=== PATIENT | female | born 1970 | race Caucasian/White ===

== ENCOUNTER 2016-12-07 14:13 | Emergency (ER) ==
[2016-12-07 14:17] VITALS: BP 136/87; TEMP 98.3; BMI 22.7
[2016-12-07 15:25] LABS: FLU INTERNAL QC INTERNAL QC VALID; RAPID FLU A NEGATIVE (NEGATIVE); RAPID FLU B NEGATIVE (NEGATIVE)
--- NOTE | 2016-12-07 15:38 | ED.PDOC ---
General ED Provider: Dr. JOSÉ MANUEL JOYCE Chief Complaint: Respiratory Complaint Stated Complaint: cough, wheez, Time Seen by Physician: 14:14 Mode of Arrival: Walk-In Information Source: Patient Exam Limitations: No limitations [facility] T[facility] Documentation Reviewed and Agree: Yes Respiratory Complaint Exam - Respiratory Complaint/Exam Symptoms Are: Still present Timing: Intermittent Initial Severity: Moderate Current Severity: Moderate Location: Chest Character: Reports: Non-productive cough Aggravating: Reports: None Alleviating: Reports: None Associated Signs and Symptoms: Reports: Nasal congestion. Denies: Rapid breathing, Dyspnea, Fever, Chills, Chest pain, Pleuritic chest pain, Wheezing, Hemoptysis, Dizziness, Calf pain, Calf swelling, Edema, URI, Hoarseness, Sinus discomfort, Vomiting, Sore throat, Weight loss, Decreased oral intake, Increased thirst, Increased appetite, Increased urination Related History: Reports: Similar episode History of Healthcare-Acquired Pneumonia: No Related Surgical History: Reports: None Pulmonary Embolism Risk Factors: None Cardiac Risk Factors: Reports: Elevated lipids Pseudomonas Risk Factors: Reports: None Tuberculosis Risk Factors: Reports: None Status Asthmaticus Risk Factors: Reports: None Home Oxygen Use: No Recent Stress Test: No Recent Echo/LV Function: No Current Antibiotic Use: No Current Asthma Medication Use: No Respiratory Distress: None Inadequate Respiratory Effort: No Dysphagia Present: No Stridor Present: No JVD Present: No Retractions: Not Present Diminished Breath Sounds: No Sinus Tenderness: None Grunting Respirations: No Kussmaul Respirations: No Differential Diagnoses: Pneumonia, Bronchitis Review of Systems - Review Of Systems Constitutional: Reports: No symptoms Eyes: Reports: No symptoms Ears, Nose, Mouth, Throat: Reports: No symptoms Respiratory: Reports: Cough, Wheezing Cardiac: Reports: No symptoms GI: Reports: No symptoms : Reports: No symptoms Musculoskeletal: Reports: No symptoms Skin: Reports: No symptoms Neurological: Reports: No symptoms Endocrine: Reports: No symptoms Hematologic/Lymphatic: Reports: No symptoms All Other Systems: Reviewed and Negative Past Medical History - Past Medical History Previously Healthy: Yes Endocrine: Reports: None, Dyslipidemia Cardiovascular: Reports: None Respiratory: Reports: None Hematological: Reports: None Gastrointestinal: Reports: None Genitourinary: Reports: None Neuro/Psych: Reports: None Musculoskeletal: Reports: None Cancer: Reports: None Last Menstrual Period: n/a - Surgical History General Surgical History: Reports: None - Family History Family History: Reports: None - Social History Smoking Status: Current every day smoker Hx Substance Use: No Alcohol Screening: Occasionally Physical Exam - Physical Exam Appearance: Well-appearing, No pain distress, Well-nourished Eyes: ANGELINA, EOMI, Conjunctiva clear ENT: Ears normal, Nose normal, Oropharynx normal Respiratory: Airway patent, Breath sounds clear, Breath sounds equal, Respirations nonlabored Cardiovascular: RRR, Pulses normal, No rub, No murmur GI/: Soft, Nontender, No masses, Bowel sounds normal, No Organomegaly Musculoskeletal: Normal strength, ROM intact, No edema, No calf tenderness Skin: Warm, Dry, Normal color Neurological: Sensation intact, Motor intact, Reflexes intact, Cranial nerves intact, Alert, Oriented Psychiatric: Affect appropriate, Mood appropriate Critical Care Note - Critical Care Note Total Time (mins): 0 Course - Course Orders, Labs, Meds: Lab Review 12/07/16 15:00 Influenza A (Rapid) Negative Influenza B (Rapid) Negative Orders Category Date Time Status MOLECULAR GROUP A STREP Stat LAB 12/07/16 15:00 Results RAPID FLU A/B Stat LAB 12/07/16 14:57 Uncollected STREP SCREEN Stat LAB 12/07/16 14:57 Uncollected CHEST, 2 VIEWS PA & LAT Stat RADS 12/07/16 14:57 Ordered Vital Signs: Temp Pulse Resp BP Pulse Ox 12/07/16 14:14 98.3 F 73 14 136/87 98 Departure - Departure Time of Disposition: 15:38 Disposition: HOME SELF-CARE Discharge Problem: Bronchitis Instructions: Bronchospasm (ED), Wheezing (ED), Acute Bronchitis (ED) Condition: Good Pt referred to PMD for follow-up: Yes Additional Instructions: Please call your Family Physician as soon as possible to schedule a follow-up appointment. Prescriptions: Amoxicillin 500 mg PO Q8HR #21 tablet Methylprednisolone [Medrol Dosepak] 4 mg PO DIRECTED #1 pkg Allergies/Adverse Reactions: Allergies No Known Allergies Allergy (Unverified 12/07/16 14:17) Home Medications: Ambulatory Orders Amoxicillin 500 mg PO Q8HR #21 tablet 12/07/16 Methylprednisolone [Medrol Dosepak] 4 mg PO DIRECTED #1 pkg 12/07/16 Disposition Discussed With: Patient
--- NOTE | 2016-12-08 09:32 | DI ---
EXAM: Two radiographic images of the chest. Comparison: None available. Reason for study: Cough. FINDINGS: No pneumothorax, pleural effusion, or focal consolidation. The cardiac silhouette is not enlarged. Well-circumscribed 5 mm dense nodule in the left lung base is likely a granuloma. Mild degenerative disease is noted in the thoracic spine with anterior osteophytosis. IMPRESSION: No acute cardiopulmonary findings.
== END 2016-12-07 15:54 | disposition home or self-care (01) ==
LOC: ED 14:13
DX: J20.9 Acute bronchitis, unspecified (principal); E78.5 Hyperlipidemia, unspecified; F17.210 Nicotine dependence, cigarettes, uncomplicated
CPT/HCPCS: 87651; 87804; 87880; 99283

== ENCOUNTER 2017-03-16 12:06 | Outpatient (CLI) ==
[2017-03-16 12:24] LABS: BASOPHILS # (AUTO) 0.1 K/uL (0-0.2); BASOPHILS % (AUTO) 0.9 % (0.0-3.0); EOSINOPHILS # (AUTO) 0.1 K/ul (0.0-0.7); EOSINOPHILS % (AUTO) 2.1 % (0.0-7.0); HEMATOCRIT 39.2 % (37.0-47.0); HEMOGLOBIN 13.6 g/dl (12.0-16.0); IMMATURE GRANULOCYTE % (AUTO) 0.3 % (0.0-5.0); LYMPHOCYTES # (AUTO) 2.1 K/uL (0.60-3.4); LYMPHOCYTES % (AUTO) 31.7 (10.0-50.0); MEAN CORPUSCULAR HGB CONC 34.7 (31.8-35.4); MEAN CORPUSCULAR VOLUME 92.2 fl (81.0-99.0); MONOCYTES # (AUTO) 0.4 K/uL (0.4-2.0); MONOCYTES % (AUTO) 6.4 (0-10); NEUTROPHILS # (AUTO) 3.9 K/ul (2.0-6.9); NEUTROPHILS % (AUTO) 58.6; PLATELET COUNT 312 10^3/uL (140-440); RED BLOOD COUNT 4.25 10^6/ul (4.20-5.40); WHITE BLOOD COUNT 6.71 K/ul (4.6-10.2)
[2017-03-16 13:03] LABS: ALBUMIN 3.9 g/dL (3.4-5.0); ALBUMIN/GLOBULIN RATIO 1.03; ANION GAP 13.1; BILIRUBIN,TOTAL 0.33 mg/dL (0.00-1.20); BUN/CREATININE RATIO 15.49; CALCIUM 9.7 mg/dL (8.2-10.2); CREATININE 0.71 mg/dL (0.60-1.30); POTASSIUM 4.1 mmol/L (3.5-5.10); TOTAL PROTEIN 7.7 g/dL (6.4-8.2)
== END 2017-03-16 12:07 | disposition home or self-care (01) ==
LOC: LAB 12:06
PROVIDERS: ATTEND Nurse Practitioner Family
DX: I10 Essential (primary) hypertension (principal); F41.9 Anxiety disorder, unspecified; E78.5 Hyperlipidemia, unspecified
CPT/HCPCS: 36415; 80053; 80061; 84439; 84443; 85025

== ENCOUNTER 2017-03-30 10:58 | Emergency (ER) ==
[2017-03-30 10:58] VITALS: BMI 22.7
[2017-03-30 11:03] VITALS: BP 108/74; TEMP 97.1
--- NOTE | 2017-03-30 11:20 | ED.PDOC ---
General ED Provider: Dr. CHELO SANTACRUZ JR Chief Complaint: Back Pain Stated Complaint: patient states she has been having problems with her low back for years and states she has been going to the clinic. states they usually given her muscle relaxers. states it flared up again yesterday. patient c/o pain to right lumbar area and down buttock and all the way down into her right foot[End]2 years patient states pain goes all the way into foot[End]97.1 91 16 96% 108/74 07/07 Time Seen by Physician: 11:20 Mode of Arrival: Walk-In Information Source: Patient Exam Limitations: No limitations Primary Care Provider: [facility] and Triage Documentation Reviewed and Agree: No Review of Systems - Review Of Systems Constitutional: Reports: No symptoms Eyes: Reports: No symptoms Ears, Nose, Mouth, Throat: Reports: No symptoms Respiratory: Reports: No symptoms Cardiac: Reports: No symptoms GI: Reports: No symptoms : Reports: No symptoms Musculoskeletal: Reports: Back pain, Muscle pain, Other (right sciatrica nmild slight pos SLR works 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) Skin: Reports: No symptoms Neurological: Reports: Tingling Endocrine: Reports: No symptoms Hematologic/Lymphatic: Reports: No symptoms All Other Systems: Other Past Medical History - Past Medical History Previously Healthy: Yes Endocrine: Reports: None, Dyslipidemia Cardiovascular: Reports: Hypertension Respiratory: Reports: None Hematological: Reports: None Gastrointestinal: Reports: None Genitourinary: Reports: None Neuro/Psych: Reports: Anxiety, Depression Musculoskeletal: Reports: Back Pain Cancer: Reports: None Last Menstrual Period: n/a - Surgical History General Surgical History: Reports: Hysterectomy - Family History Family History: Reports: None - Social History Smoking Status: Current every day smoker Hx Substance Use: No Alcohol Screening: None Physical Exam - Physical Exam Appearance: Well-appearing Pain Distress: Moderate Neck: Supple Respiratory: Airway patent Musculoskeletal: Normal strength, ROM intact, No edema, No calf tenderness (POS SLR RIGHT) Skin: Warm, Dry, Normal color Neurological: Sensation intact, Motor intact, Reflexes intact, Cranial nerves intact, Alert, Oriented Psychiatric: Affect appropriate Critical Care Note - Critical Care Note Total Time (mins): 0 Course - Course Orders, Labs, Meds: Orders Category Date Time Status Ketorolac Tromethamine [Toradol] MEDS 03/30/17 11:42 Discontinued 60 mg IM ONCE STA Medications Discontinued Medications Generic Name Dose Route Start Last Admin Trade Name Chilo PRN Reason Stop Dose Admin Ketorolac Tromethamine 60 mg 03/30/17 11:42 03/30/17 11:52 Toradol IM 03/30/17 11:43 60 mg ONCE STA Administration Vital Signs: Temp Pulse Resp BP Pulse Ox 03/30/17 10:58 97.1 F L 91 H 16 108/74 96 Departure - Departure Time of Disposition: 12:32 Disposition: HOME SELF-CARE Discharge Problem: Sciatica of right side associated with disorder of lumbosacral spine Instructions: Sciatica (ED), Lumbar Radiculopathy (ED) Condition: Good Pt referred to PMD for follow-up: Yes Additional Instructions: limit lifting for three days Toradol for pain may use Aleve(2 twice a day) instead but not the same day as Toradol follow up PMD consider repeat MRI would consider neurosurgical consultation expect improvement with nonsteroidals may require further treatment for resolution Prescriptions: Ketorolac Tromethamine [Toradol] 10 mg PO QID PRN #20 tablet PRN Reason: PAIN Allergies/Adverse Reactions: Allergies gabapentin [From Neurontin] Allergy (Intermediate, Unverified 03/30/17 11:03) Swelling oral swelling with sores Home Medications: Ambulatory Orders Ketorolac Tromethamine [Toradol] 10 mg PO QID PRN #20 tablet 03/30/17
[2017-03-30] MEDS ORDERED: TORADOL IM STA (11:42)
== END 2017-03-30 12:39 | disposition home or self-care (01) ==
LOC: ED 10:58
DX: M54.41 Lumbago with sciatica, right side (principal); M54.16 Radiculopathy, lumbar region; F17.210 Nicotine dependence, cigarettes, uncomplicated
CPT/HCPCS: 96372; 99282

== ENCOUNTER 2017-05-22 07:30 | Emergency (ER) ==
[2017-05-22 07:31] VITALS: BMI 22.7
[2017-05-22 07:41] VITALS: BP 103/67; TEMP 98
[2017-05-22] MEDS ORDERED: DECADRON 4 MG/ML SDV IM STA (07:55)
--- NOTE | 2017-05-22 07:58 | ED.PDOC ---
General ED Provider: Dr. MATTHEW LOGAN Chief Complaint: Rash Stated Complaint: rash started on the rt leg, spreadding, blistery, itching, Time Seen by Physician: 07:55 Mode of Arrival: Walk-In Information Source: Patient Primary Care Provider: [facility]W [facility] Nursing and Triage Documentation Reviewed and Agree: Yes Skin Complaint Exam - Skin Rash/Itching Complaint/Exam Symptoms Are: Still present Initial Severity: Mild Current Severity: Mild Potential Exposures: Reports: Plants Aggravating: Reports: None Alleviating: Reports: None Associated Signs and Symptoms: Denies: Difficulty breathing, Fever, Chills Skin Findings: Present: Vesicles, Weeping skin Differential Diagnoses: Contact Dermatitis Review of Systems - Review Of Systems Constitutional: Reports: No symptoms Eyes: Reports: No symptoms Ears, Nose, Mouth, Throat: Reports: No symptoms Respiratory: Reports: No symptoms Cardiac: Reports: No symptoms GI: Reports: No symptoms : Reports: No symptoms Musculoskeletal: Reports: No symptoms Skin: Reports: Rash Neurological: Reports: No symptoms Endocrine: Reports: No symptoms Hematologic/Lymphatic: Reports: No symptoms All Other Systems: Reviewed and Negative Past Medical History - Past Medical History Previously Healthy: Yes Endocrine: Reports: None, Dyslipidemia Cardiovascular: Reports: Hypertension Respiratory: Reports: None Hematological: Reports: None Gastrointestinal: Reports: None Genitourinary: Reports: None Neuro/Psych: Reports: Anxiety, Depression Musculoskeletal: Reports: Back Pain Cancer: Reports: None Last Menstrual Period: na - Surgical History General Surgical History: Reports: Hysterectomy - Family History Family History: Reports: None - Social History Smoking Status: Current every day smoker, Heavy tobacco smoker Smoking Cessation Counseling Time: > 10 min Hx Substance Use: No Alcohol Screening: Occasionally - Immunizations Tetanus Shot up to Date: Yes Physical Exam - Physical Exam Appearance: Well-appearing, No pain distress, Well-nourished Eyes: ANGELINA, EOMI, Conjunctiva clear ENT: Ears normal, Nose normal, Oropharynx normal Respiratory: Airway patent, Breath sounds clear, Breath sounds equal, Respirations nonlabored Cardiovascular: RRR, Pulses normal, No rub, No murmur GI/: Soft, Nontender, No masses, Bowel sounds normal, No Organomegaly Musculoskeletal: Normal strength, ROM intact, No edema, No calf tenderness Skin: Warm, Dry, Normal color Neurological: Sensation intact, Motor intact, Reflexes intact, Cranial nerves intact, Alert, Oriented Psychiatric: Affect appropriate, Mood appropriate Critical Care Note - Critical Care Note Total Time (mins): 0 Course - Course Orders, Labs, Meds: Orders Category Date Time Status Dexamethasone 4 mg/ml Inj [Decadron 4 mg/ml Sdv] MEDS 05/22/17 07:55 Stat 4 mg IM ONCE STA Vital Signs: Temp Pulse Resp BP Pulse Ox 05/22/17 07:31 98 F 87 20 103/67 95 Departure - Departure Time of Disposition: 08:01 Disposition: HOME SELF-CARE Discharge Problem: Pruritic rash Instructions: Contact Dermatitis (ED) Condition: Stable Pt referred to PMD for follow-up: No Additional Instructions: keep area clean, do not scratch the area, Increase hydration. Prescriptions: Betamethasone Dipropionate 1 applic TP DAILY #1 vial Diphenhydramine HCl [Benadryl] 25 mg PO Q6H #14 capsule Methylprednisolone [Medrol Dosepak] 4 mg PO DIRECTED #1 pkg Allergies/Adverse Reactions: Allergies gabapentin [From Neurontin] Allergy (Intermediate, Unverified 05/22/17 07:43) Swelling oral swelling with sores Home Medications: Ambulatory Orders Betamethasone Dipropionate 1 applic TP DAILY #1 vial 05/22/17 Diphenhydramine HCl [Benadryl] 25 mg PO Q6H #14 capsule 05/22/17 Methylprednisolone [Medrol Dosepak] 4 mg PO DIRECTED #1 pkg 05/22/17 Disposition Discussed With: Patient
== END 2017-05-22 08:18 | disposition home or self-care (01) ==
LOC: ED 07:30
DX: L23.7 Allergic contact dermatitis due to plants, except food (principal); F17.210 Nicotine dependence, cigarettes, uncomplicated
CPT/HCPCS: 96372; 99282

== ENCOUNTER 2017-09-11 13:10 | Emergency (ER) ==
[2017-09-11 13:19] VITALS: BP 181/105; TEMP 97.9; BMI 23.0
--- NOTE | 2017-09-11 13:33 | ED.PDOC ---
General ED Provider: Dr. DANISH HARRIS-ER Chief Complaint: Respiratory Complaint Stated Complaint: gage got sinus congestion and cough Time Seen by Physician: 13:31 Mode of Arrival: Walk-In Information Source: Patient Exam Limitations: No limitations [facility] and Triage Documentation Reviewed and Agree: Yes Respiratory Complaint Exam - Respiratory Complaint/Exam Onset/Duration: 3 days Symptoms Are: Still present Timing: Constant Initial Severity: Mild Current Severity: Mild Location: Nose, Chest Character: Reports: Productive cough Aggravating: Reports: URI Alleviating: Reports: None Associated Signs and Symptoms: Reports: URI, Nasal congestion, Sinus discomfort. Denies: Rapid breathing, Dyspnea, Fever, Chills, Chest pain, Pleuritic chest pain, Wheezing, Hemoptysis, Dizziness, Calf pain, Calf swelling , Edema, Vomiting, Sore throat, Weight loss, Decreased oral intake, Increased thirst, Increased appetite, Increased urination History of Healthcare-Acquired Pneumonia: No Related Surgical History: Reports: None Cardiac Risk Factors: Reports: Smoking Tuberculosis Risk Factors: Reports: Smoking Status Asthmaticus Risk Factors: Reports: None Home Oxygen Use: No Recent Stress Test: No Recent Echo/LV Function: No Current Antibiotic Use: No Current Asthma Medication Use: No Respiratory Distress: None Inadequate Respiratory Effort: No Dysphagia Present: No Stridor Present: No JVD Present: No Accessory Muscle Use: No Retractions: Not Present Diminished Breath Sounds: No Sinus Tenderness: Maxillary Grunting Respirations: No Kussmaul Respirations: No Differential Diagnoses: Bronchitis, Sinusitis, URI Review of Systems - Review Of Systems Constitutional: Reports: No symptoms Eyes: Reports: No symptoms Ears, Nose, Mouth, Throat: Reports: Nose discharge Respiratory: Reports: Cough Cardiac: Reports: No symptoms GI: Reports: No symptoms : Reports: No symptoms Musculoskeletal: Reports: No symptoms Skin: Reports: No symptoms Neurological: Reports: No symptoms Endocrine: Reports: No symptoms Hematologic/Lymphatic: Reports: No symptoms All Other Systems: Reviewed and Negative Past Medical History - Past Medical History Previously Healthy: Yes Endocrine: Reports: None, Dyslipidemia Cardiovascular: Reports: Hypertension Respiratory: Reports: None Hematological: Reports: None Gastrointestinal: Reports: None Genitourinary: Reports: None Neuro/Psych: Reports: Anxiety, Depression Musculoskeletal: Reports: Back Pain Cancer: Reports: None Last Menstrual Period: unknown - Surgical History General Surgical History: Reports: Hysterectomy - Family History Family History: Reports: None - Social History Smoking Status: Current every day smoker, Heavy tobacco smoker Hx Substance Use: No Alcohol Screening: Occasionally Lives: With family Physical Exam - Physical Exam Appearance: Well-appearing, No pain distress, Well-nourished Eyes: ANGELINA, EOMI, Conjunctiva clear ENT: Rhinorrhea Neck: Supple Respiratory: Airway patent, Breath sounds clear, Breath sounds equal, Respirations nonlabored, Rhonchi Cardiovascular: RRR, Pulses normal, No rub, No murmur GI/: Soft, Nontender, No masses, Bowel sounds normal, No Organomegaly Musculoskeletal: Normal strength Skin: Warm, Dry, Normal color Neurological: Sensation intact, Motor intact, Reflexes intact, Cranial nerves intact, Alert, Oriented Psychiatric: Affect appropriate, Mood appropriate Re-Evaluation - Re-Evaluation Time of Re-Evaluation: 13:33 Status: Improved Vital Signs Stable: Yes (bp down to 160/90--denies any cp or thrasher) Pain Level: 0 Appearance: NAD Lungs: Clear Skin: Warm and Dry Neuro: Alert and Oriented X3 CV: RRR Critical Care Note - Critical Care Note Total Time (mins): 0 Course - Course Vital Signs: Temp Pulse Resp BP Pulse Ox 09/11/17 13:11 97.9 F 77 20 181/105 H 97 Departure - Departure Time of Disposition: 13:33 Disposition: HOME SELF-CARE Discharge Problem: Bronchitis Sinusitis Qualifiers: Sinusitis location: pansinusitis Chronicity: acute Recurrence: non-recurrent Qualified Code(s): J01.40 - Acute pansinusitis, unspecified Instructions: Sinusitis (ED) Condition: Good Pt referred to PMD for follow-up: Yes Additional Instructions: augmentin 875mg bid 10 days--medrol dose pack--tessalon perles 200mg tid prn cough 30--stop smoking--monitor bp--and f/u with your pcp Allergies/Adverse Reactions: Allergies gabapentin [From Neurontin] Allergy (Intermediate, Verified 09/11/17 13:19) Swelling oral swelling with sores Disposition Discussed With: Patient
== END 2017-09-11 13:45 | disposition home or self-care (01) ==
LOC: ED 13:10
DX: J40 Bronchitis, not specified as acute or chronic (principal); J01.40 Acute pansinusitis, unspecified; I10 Essential (primary) hypertension; F17.210 Nicotine dependence, cigarettes, uncomplicated
CPT/HCPCS: 99282

== ENCOUNTER 2017-11-30 15:24 | Outpatient (CLI) | END 2017-11-30 15:25 | disposition home or self-care (01) | LOC: LAB 15:24 | PROVIDERS: ATTEND Nurse Practitioner Family | DX: E78.5 Hyperlipidemia, unspecified (principal); F32.9 Major depressive disorder, single episode, unspecified; F41.9 Anxiety disorder, unspecified; I10 Essential (primary) hypertension | CPT/HCPCS: 36415; 80053; 80061; 84439; 84443 ==

== ENCOUNTER 2018-09-06 11:46 | Emergency (ER) ==
[2018-09-06 11:51] VITALS: BP 117/79; TEMP 99; BMI 23.5
--- NOTE | 2018-09-06 12:14 | ED.PDOC ---
General ED Provider: Dr. OMAR BLUNT Chief Complaint: Extremity Swelling/Pain Stated Complaint: R ankle swollen and painful; L heel of foot pins and needles and pain on standing Time Seen by Physician: 12:14 Mode of Arrival: Walk-In Information Source: Patient Primary Care Provider: [facility] Nursing and Triage Documentation Reviewed and Agree: Yes Does patient meet sepsis criteria?: No System Inflammatory Response Syndrome: Not Applicable Sepsis Protocol: For patient's 13 years and over: Temp is 96.8 and below OR 101 and greater Pulse >90 BPM Resp >20/minute Acutely Altered Mental Status Are patient's symptoms suggestive of a new infection, such as: -Pneumonia -Skin, Soft Tissue -Endocarditis -UTI -Bone, Joint Infection -Implantable Device -Acute Abdominal Infection -Wound Infection -Meningitis -Blood Stream Catheter Infection -Unknown Musculoskeletal Complaint Exam - Lower Extremity Complaint/Exam Location of Pain: Reports: Right, Ankle Mechanism of Injury: Reports: No known trauma (Works as a PATIENT APPOINTMENT COORDINATOR; on feet - lifting - 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 incident; also L heel pins and needles - wtanding) Onset/Duration: Several days Symptoms Are: Still present Onset of Pain: Reports: Days (Several) Initial Severity: Mild Current Severity: Moderate Location: Reports: Diffuse Character: Reports: Sharp, Aching Able to Bear Weight: Yes (Painful with walking) Lower Extremity Findings: Present: Swelling (Right ankle) Review of Systems - Review Of Systems Constitutional: Reports: No symptoms Musculoskeletal: Reports: Joint pain, Joint swelling (R ankle) Skin: Reports: No symptoms Neurological: Reports: No symptoms All Other Systems: Reviewed and Negative Past Medical History - Past Medical History Previously Healthy: Yes Endocrine: Reports: None, Dyslipidemia Cardiovascular: Reports: Hypertension Respiratory: Reports: None Hematological: Reports: None Gastrointestinal: Reports: None Genitourinary: Reports: None Neuro/Psych: Reports: Anxiety, Depression Musculoskeletal: Reports: Back Pain (Hx sciatica involving R leg distribution) Cancer: Reports: None Last Menstrual Period: 20 years ago - Surgical History General Surgical History: Reports: Hysterectomy - Family History Family History: Reports: None - Social History Smoking Status: Current every day smoker Hx Substance Use: No Alcohol Screening: Occasionally - Immunizations Tetanus Shot up to Date: Yes Physical Exam - Physical Exam Appearance: Well-appearing Respiratory: Airway patent, Respirations nonlabored Skin: Warm, Dry, Normal color (Except for slight ecchymosis R lateral ankle) Neurological: Sensation intact, Motor intact, Alert, Oriented Psychiatric: Mood appropriate Interpretation - Radiology Interpretation Radiology Interpretation By: Radiologist Radiology Results: No acute changes Exam Interpreted: Other (R ankle - no acute changes. Left foot - no findings consistent with clinical picture.) Critical Care Note - Critical Care Note Total Time (mins): 10 Course - Course Orders, Labs, Meds: Orders Category Date Time Status ANKLE, RIGHT MIN 3 VIEWS Stat RADS 09/06/18 12:12 Completed FOOT, LEFT 3 VIEWS Stat RADS 09/06/18 12:13 Completed Vital Signs: Temp Pulse Resp BP Pulse Ox 09/06/18 11:47 99.0 F 100 H 16 117/79 99 Departure - Departure Time of Disposition: 12:52 Disposition: HOME SELF-CARE Discharge Problem: Pain of left heel Right ankle strain Qualifiers: Encounter type: initial encounter Qualified Code(s): S96.911A - Strain of unspecified muscle and tendon at ankle and foot level, right foot, initial encounter Instructions: Ankle Strain (ED), Plantar Fasciitis (ED) Condition: Good Pt referred to PMD for follow-up: Yes (Follow up with primary care provider) IPMP verified?: No (Not indicated; no CS prescribed) Additional Instructions: Rest; minimal weight bearing - 2 days. Tylenol and/or Ibuprofen. Keep your appointment as scheduled with primary care. Allergies/Adverse Reactions: Allergies gabapentin [From Neurontin] Allergy (Intermediate, Verified 09/11/17 13:19) Swelling oral swelling with sores Disposition Discussed With: Patient (Discussed radiology findings and plan; has appointment with primary care)
--- NOTE | 2018-09-06 12:43 | DI ---
EXAM: Three views of the right ankle HISTORY: Pain COMPARISON: None available FINDINGS: No fracture or dislocation is identified. The ankle mortise is symmetric. The talar dome contour is normal. There is generalized ankle soft tissue swelling which is most prominent laterally. IMPRESSION: No acute osseous abnormality. Soft tissue swelling.
--- NOTE | 2018-09-06 12:44 | DI ---
EXAM: Three views of the left foot HISTORY: Pain COMPARISON: None available FINDINGS: No fracture or dislocation is identified. There is mild marginal osteophyte formation at the first MT P joint. A tiny plantar calcaneal degenerative enthesophyte is seen. IMPRESSION: No acute osseous abnormality. Mild first MTP joint osteoarthritis. Tiny calcaneal spur.
== END 2018-09-06 13:03 | disposition home or self-care (01) ==
LOC: ED 11:46
DX: S96.911A Strain of unspecified muscle and tendon at ankle and foot level, right foot, initial encounter (principal); M79.672 Pain in left foot; F17.210 Nicotine dependence, cigarettes, uncomplicated
CPT/HCPCS: 99282